=== PATIENT | female | born 1975 | race Caucasian/White ===

== ENCOUNTER 2018-03-20 10:54 | Emergency (ER) | payer OTHER ==
[~2018-03-20] VITALS: Ht 165.1 cm; Wt 102.1 kg
[2018-03-20 11:05] VITALS: BP 133/70
--- NOTE | 2018-03-20 12:17 | NUR ---
42 yo f brought in by ems from home c/o intermittent, chronic, rlq abdominal pain exacerbated yesterday with light vaginal bleeding. denies n/v/d/fever. reports that her psoriasis is acting up as well and the itching is unbearable. abd soft, non-tender. bowel sounds active x 4. pt aaox4, gcs 15, cms intact. ambualtory w/ steady gait. rr even and unlabored, lungs bl clear. er md notified og pt status. pt needs met, safety precautions in place. will continue to monitor.
[2018-03-20] MEDS ORDERED: diphenhydrAMINE 50 MG/ML VIAL IVP ONE (13:35)
[2018-03-20] MEDS ORDERED: KETOROLAC 30 MG/ML VIAL IVP ONE (13:35)
--- NOTE | 2018-03-20 13:40 | NUR ---
PHLEB AT BEDSIDE
--- NOTE | 2018-03-20 13:52 | NUR ---
U/S AT BEDSIDE AT THIS TIME
[2018-03-20 13:59] LABS: BASOPHILS # (AUTO) 0.1 K/uL (0.00-0.22); BASOPHILS % (AUTO) 0.8 % (0.0-2.0); EOSINOPHILS # (AUTO) 0.9 K/uL (0-0.4); EOSINOPHILS % (AUTO) 11.8 % (0.0-4.0); HEMATOCRIT 35.6 % (36-48); HEMOGLOBIN 11.1 g/dL (12.0-16.0); LYMPHOCYTES # (AUTO) 1.1 K/uL (2.5-16.5); LYMPHOCYTES % (AUTO) 13.8 % (20.5-51.1); MEAN CORPUSCULAR HEMOGLOBIN 24 pg (27-31); MEAN CORPUSCULAR HGB CONC 31 g/dL (33-37); MEAN CORPUSCULAR VOLUME 75.6 fL (80-94); MONOCYTES # (AUTO) 0.7 K/uL (0.8-1.0); MONOCYTES % (AUTO) 9.3 % (1.7-9.3); NEUTROPHILS % (AUTO) 64.3 % (42.2-75.2); PLATELET COUNT (AUTO) 310 K/uL (140-450); RED BLOOD CELL COUNT(AUTO) 4.71 MIL/uL (4.20-5.40); RED CELL DISTRIBUTION WIDTH 17.3 % (11.6-13.7); WHITE BLOOD COUNT (AUTO) 7.8 K/uL (4.8-10.8)
[2018-03-20 14:04] LABS: APPEARANCE,URINE CLEAR (CLEAR); BILIRUBIN,URINE NEGATIVE (NEGATIVE); BLOOD, URINE 1+ (NEGATIVE); COLOR,URINE YELLOW (YELLOW); LEUKOCYTE ESTERASE ,URINE NEGATIVE (NEGATIVE); NITRITE, URINE NEGATIVE (NEGATIVE); UGLUCOSE NEGATIVE (NEGATIVE)
[2018-03-20 14:06] LABS: RBC,URINE 3-10 (FEW) /HPF (0-5); WBC,URINE 0-5 (RARE) /HPF (0-5)
[2018-03-20 14:18] LABS: ANION GAP 11.1 (8-16); CARBON DIOXIDE 28.5 mmol/L (21-32); CREATININE 0.8 mg/dL (0.6-1.3); POTASSIUM 3.6 mmol/L (3.5-5.1)
[2018-03-20 14:24] LABS: ALBUMIN 3.8 g/dL (3.4-5.0); TOTAL BILIRUBIN 0.7 mg/dL (0.0-1.0)
--- NOTE | 2018-03-20 14:50 | NUR ---
pt with vss at this time. lying on [facility]. rr even and unlabored, lungs bl clear. safety precautions in place. will continue to monitor.
--- NOTE | 2018-03-20 15:38 | NUR ---
pt with vss at this time. continues lying on [facility] in supine position. rr even and unlabored, lungs bl clear. safety precautions in place. will continue to monitor.
[2018-03-20 16:55] VITALS: BP 120/75
--- NOTE | 2018-03-20 16:55 | NUR ---
Patient discharged with v/s stable. Written and verbal after care instructions given and explained. Patient alert, oriented and verbalized understanding of instructions. Ambulatory with steady gait. All questions addressed prior to discharge. ID band removed. Patient advised to follow up with PMD. Rx of CLARITIN given. Patient educated on indication of medication including possible reaction and side effects. Opportunity to ask questions provided and answered.
== END 2018-03-20 16:55 | disposition home or self-care (01) ==
LOC: MED 10:54
DX: R10.31 Right lower quadrant pain (principal); L40.9 Psoriasis, unspecified; E11.9 Type 2 diabetes mellitus without complications; Z85.41 Personal history of malignant neoplasm of cervix uteri; Z88.0 Allergy status to penicillin; Z90.49 Acquired absence of other specified parts of digestive tract
CPT/HCPCS: 36415; 76830; 80053; 81001; 81025; 85025; 93976; 96374; 96375; 99284; J1200; J1885; Q0092

== ENCOUNTER 2019-10-10 21:53 | Emergency (ER) | payer MEDICAID, OTHER ==
[~2019-10-10] VITALS: Ht 165.1 cm; Wt 95.3 kg
--- NOTE | 2019-10-10 21:53 | NUR ---
PT TO BED 1. PT CARE TO [facility] S[facility]OVAL
[2019-10-10 21:56] VITALS: BP 146/89
[2019-10-10] MEDS ORDERED: ALBUTEROL SULFATE/IPRATROPIU 3 ML SOL IH ONE (22:10)
[2019-10-10] MEDS ORDERED: NACL 0.9% 1,000 ML IV ONE (22:10)
--- NOTE | 2019-10-10 22:20 | NUR ---
ERMD AT BEDSIDE EVALUATING PT
--- NOTE | 2019-10-10 22:22 | NUR ---
HL EST G20 ON PT LT FOREARM. BLD DRAWN SENT TO LAB, INCLUDING LACTIC, BLD CULTURE X2.
--- NOTE | 2019-10-10 22:26 | NUR ---
43 Y/O FEMALE C/O ON AND OFF SOB X2 WEEKS. TODAY GOT WORSE. PT FROM HOME. WHEEZING HEARD BILATERALLY. DENIES COUGH, FEVER. MED HX: CERVICAL CANCER, OFF CHEMO HX- PT HAD A COVID TEST TODAY 10/10/19- RESULT PENDING
[2019-10-10 22:33] LABS: BASOPHILS # (AUTO) 0.1 K/uL (0.00-0.22); BASOPHILS % (AUTO) 0.6 % (0.0-2.0); EOSINOPHILS # (AUTO) 2.7 K/uL (0-0.4); HEMOGLOBIN 11.7 g/dL (12.0-16.0); LYMPHOCYTES # (AUTO) 2.6 K/uL (2.5-16.5); LYMPHOCYTES % (AUTO) 20.4 % (20.5-51.1); MEAN CORPUSCULAR HEMOGLOBIN 25 pg (27-31); MEAN CORPUSCULAR HGB CONC 32 g/dL (33-37); MEAN CORPUSCULAR VOLUME 77.3 fL (80-94); MONOCYTES # (AUTO) 0.8 K/uL (0.8-1.0); MONOCYTES % (AUTO) 6.1 % (1.7-9.3); NEUTROPHILS # (AUTO) 6.7 K/uL (1.8-7.7); NEUTROPHILS % (AUTO) 51.7 % (42.2-75.2); PLATELET COUNT (AUTO) 332 K/uL (140-450); RED BLOOD CELL COUNT(AUTO) 4.78 MIL/uL (4.20-5.40); RED CELL DISTRIBUTION WIDTH 16.6 % (11.6-13.7); WHITE BLOOD COUNT (AUTO) 12.9 K/uL (4.8-10.8)
[2019-10-10 22:48] LABS: EOSINOPHILS % (AUTO) 21.2 % (0.0-4.0)
[2019-10-10 22:50] LABS: ANION GAP 18.1 (8-16); CARBON DIOXIDE 21.3 mmol/L (21-32); POTASSIUM 3.4 mmol/L (3.5-5.1)
[2019-10-10 22:51] LABS: ALBUMIN 3.5 g/dL (3.4-5.0); CREATININE 0.9 mg/dL (0.6-1.3); TOTAL BILIRUBIN 0.7 mg/dL (0.0-1.0)
--- NOTE | 2019-10-10 23:08 | NUR ---
RT AT BEDSIDE
[2019-10-10] MEDS ORDERED: LEVOFLOXACIN 750 MG/D5W PREMIX 150 ML IV ONE (23:50)
[2019-10-11] MEDS ORDERED: cefTRIAXone 1,000 MG VIAL ONE
--- NOTE | 2019-10-11 00:10 | NUR ---
PT AMBULATED TO RESTROOM STEADY GAIT
--- NOTE | 2019-10-11 00:12 | NUR ---
PT AMBULATED TO BED 01 STEADY GAIT
--- NOTE | 2019-10-11 01:37 | NUR ---
PT AMBULATED TO RESTROOM STEADY GAIT
--- NOTE | 2019-10-11 01:45 | NUR ---
PT AMBULATED TO BED 01 STEADY GAIT
[2019-10-11] MEDS ORDERED: ALBUTEROL SULFATE/IPRATROPIU 3 ML SOL IH ONE (01:50)
--- NOTE | 2019-10-11 01:50 | NUR ---
LAB AT BEDSIDE
--- NOTE | 2019-10-11 01:55 | NUR ---
RT AT BEDSIDE
[2019-10-11] MEDS ORDERED: methylPREDNISolone SS 125 MG in WATER STERILE 2 ML IV ONE (02:10)
[2019-10-11] MEDS ORDERED: MAG SULF 2000 MG/WATER PREMIX 50 ML IV ONE (02:10)
[2019-10-11] MEDS ORDERED: methylPREDNISolone SS 125 MG/2 ML VIAL ONE (02:13)
[2019-10-11] MEDS ORDERED: WATER STERILE 10 ML MC ONE (02:13)
--- NOTE | 2019-10-11 03:06 | NUR ---
REPORT CALLED TO LISANDRA JACOBS AT [facility]. ACCEPTING DOCTOR IS DR. DALY [phone]
--- NOTE | 2019-10-11 03:44 | NUR ---
Patient to be transferred to [facility] ER. Is being transferred due to being a BURDEN PT. Receiving facility has accepting physician and available space. ER physician has signed transfer form. Patient or responsible libertarian has agreed to transfer and signed form. Patient belongings inventoried and will be sent with patient. Copy of nursing notes, lab reports, EKG, Physicians Orders and X-rays to be sent with patient. Report called to LISANDRA JACOBS at receiving facility. [facility] ambulance service has been called for transfer. ETA is 20 MIN.
[2019-10-11 03:47] VITALS: BP 128/83
--- NOTE | 2019-10-11 08:01 | NUR ---
LATE ENTRY- Normal saline 0.9% IV fluids discontinued at 0344.
== END 2019-10-11 03:47 | disposition short-term general hospital (02) ==
LOC: MED 21:53
DX: J18.9 Pneumonia, unspecified organism (principal); E11.9 Type 2 diabetes mellitus without complications; I51.9 Heart disease, unspecified; Z88.0 Allergy status to penicillin; Z85.41 Personal history of malignant neoplasm of cervix uteri
CPT/HCPCS: 36415; 71045; 80053; 83605; 83690; 83880; 84484; 85025; 87040; 93005; 94640; 96365; 96366; 96368; 99285; J0696; J1956; J2930; J3475; J7030; Q0092; 10120

== ENCOUNTER 2021-02-08 03:06 | Emergency (ER) | payer OTHER ==
[~2021-02-08] VITALS: Ht 165.1 cm; Wt 117.0 kg
[2021-02-08 03:06] VITALS: BP 122/64
[2021-02-08] MEDS ORDERED: methylPREDNISolone SS 125 MG in WATER STERILE 2 ML IV ONE (04:10)
[2021-02-08] MEDS ORDERED: methylPREDNISolone SS 125 MG/2 ML VIAL IVP ONE (04:20)
[2021-02-08] MEDS: ALBUTEROL SULFATE/IPRATROPIU 3 ML SOL IH ONE (04:44)
[2021-02-08] MEDS: predniSONE 20 MG TAB PO ONE (04:51)
[2021-02-08 05:32] LABS: BASOPHILS # (AUTO) 0.1 K/uL (0.00-0.22); BASOPHILS % (AUTO) 1.1 % (0.0-2.0); EOSINOPHILS % (AUTO) 18.7 % (0.0-4.0); HEMATOCRIT 36.3 % (36-48); LYMPHOCYTES # (AUTO) 1.9 K/uL (2.5-16.5); LYMPHOCYTES % (AUTO) 18.4 % (20.5-51.1); MEAN CORPUSCULAR HEMOGLOBIN 27 pg (27-31); MEAN CORPUSCULAR HGB CONC 33 g/dL (33-37); MEAN CORPUSCULAR VOLUME 80.5 fL (80-94); MONOCYTES # (AUTO) 0.7 K/uL (0.8-1.0); MONOCYTES % (AUTO) 6.8 % (1.7-9.3); NEUTROPHILS # (AUTO) 5.8 K/uL (1.8-7.7); PLATELET COUNT (AUTO) 298 K/uL (140-450); RED CELL DISTRIBUTION WIDTH 15.5 % (11.6-13.7); WHITE BLOOD COUNT (AUTO) 10.5 K/uL (4.8-10.8)
[2021-02-08 07:01] LABS: ALBUMIN 3.5 g/dL (3.4-5.0); CARBON DIOXIDE 21.4 mmol/L (21-32); CREATININE 0.9 mg/dL (0.6-1.3); POTASSIUM 3.4 mmol/L (3.5-5.1); TOTAL BILIRUBIN 0.6 mg/dL (0.0-1.0)
[2021-02-08] MEDS: IPRATROPIUM 0.02% 0.5 MG/2.5 ML NEBU INH ONE (07:36)
[2021-02-08] MEDS: ALBUTEROL 0.083% 2.5 MG/3 ML NEBU INH ONE (07:36)
[2021-02-08] MEDS ORDERED: MAG SULF 2000 MG/WATER PREMIX 50 ML IV ONE (08:56)
[2021-02-08] MEDS: MAG SULF 2000 MG/WATER PREMIX 50 ML IV ONE (09:10)
[2021-02-08 11:07] VITALS: BP 122/80
== END 2021-02-08 11:08 | disposition short-term general hospital (02) ==
LOC: MED 03:06
DX: J45.901 Unspecified asthma with (acute) exacerbation (principal); F12.10 Cannabis abuse, uncomplicated; I51.9 Heart disease, unspecified; E11.9 Type 2 diabetes mellitus without complications; Z88.8 Allergy status to other drugs, medicaments and biological substances; Z88.1 Allergy status to other antibiotic agents; Z20.822 Contact with and (suspected) exposure to COVID-19
CPT/HCPCS: 36415; 36600; 71045; 80053; 82803; 84484; 85025; 87426; 93005; 94640; 96365; 96366; 99285; J3475; J7512; J7613; J7644